=== PATIENT | male | born 1995 | race Caucasian/White ===

== ENCOUNTER 2023-04-26 11:59 | Inpatient (IN) ==
[2023-04-26 13:25] LABS: ABS Basophils 0.1 10^3/uL (0.0-0.1); ABS Eosinophils 0.2 10^3/uL (0.0-0.5); ABS Lymphocytes 2.1 10^3/uL (1.0-4.8); ABS Monocytes 0.9 10^3/uL (0.0-1.1); ABS Neutrophils 9.9 10^3/uL (1.5-7.6); Eosinophil % 1.7 %; Hematocrit 46.8 % (38-53); Hemoglobin 15.8 g/dL (13.2-16.3); Lymphocyte % 15.7 %; Mean Corpuscular Hemoglobin 28.7 pg (27-33); Mean Corpuscular Hgb Conc 33.6 g/dL (31-36); Mean Corpuscular Volume 85.4 fL (80-97); Mean Platelet Volume 7.1 fL (7.5-11.2); Platelet Count 329 10^3/uL (150-450); Red Blood Count 5.49 10^6/uL (4.06-5.63); Red Cell Distribution Width 13.5 % (12-17); White Blood Count 13.2 10^3/uL (3.6-10.2)
[2023-04-26 13:44] LABS: ALT 21 U/L (7-52); AST 15 U/L (13-39); Albumin 4.9 g/dL (3.2-5.2); Albumin/Globulin Ratio 1.4 (1-3); Alkaline Phosphatase 72 U/L (35-149); Anion Gap 7 mmol/L (2-16); Blood Urea Nitrogen 14 mg/dL (6-24); CO2 Carbon Dioxide 26 mmol/L (22-32); Calcium 9.9 mg/dL (8.6-10.3); Chloride 103 mmol/L (101-111); Creatinine, Serum 0.91 mg/dL (0.67-1.17); Globulin 3.4 g/dL (2-4); Glucose 94 mg/dL (70-100); Sodium 136 mmol/L (135-145); Total Protein 8.3 g/dL (6.4-8.9)
[2023-04-26 13:46] LABS: Urine Benzodiazepine Screen None Detected (None Detect); Urine Cannabinoids Screen None Detected (None Detect); Urine Opiates Screen None Detected (None Detect)
[2023-04-26 14:09] LABS: Alcohol, S < 13 mg/dL (<13); Salicylate < 2.50 mg/dL (<30)
[2023-04-26 14:24] LABS: TSH Ultra Thyroid Stim Horm 0.97 mcIU/mL (0.34-5.60)
[2023-04-26 14:25] LABS: Acetaminophen < 15 mcg/mL
[2023-04-26] MEDS: Nicotine GUM 4MG FRUIT FLAVOR PO PRN ×2 (14:59→18:25)
[2023-04-26] MEDS ORDERED: Al Hydrox/Mg Hydrox/Simet LIQ 30 ML UDC PO PRN (17:33)
[2023-04-26] MEDS ORDERED: Nicotine Lozenge mini 4 MG LOZNG.MINI MT PRN (18:00)
[2023-04-27 08:52] LABS: HDL Cholesterol 35.3 mg/dL
[2023-04-27] MEDS: Vitamin THERAPEUTIC TAB PO SCH (09:17)
[2023-04-27] MEDS: Nicotine PATCH 21 MG/24 HR PATCH TRANSDERM SCH (09:17)
[2023-04-27] MEDS: Nicotine GUM 4MG FRUIT FLAVOR PO PRN ×3 (09:18→15:12)
[2023-04-28] MEDS: Vitamin THERAPEUTIC TAB PO SCH (08:12)
[2023-04-28] MEDS: Nicotine GUM 4MG FRUIT FLAVOR PO PRN ×2 (08:13→11:05)
[2023-04-28] MEDS: Nicotine PATCH 21 MG/24 HR PATCH TRANSDERM SCH (09:32)
[2023-04-29] MEDS: Vitamin THERAPEUTIC TAB PO SCH (08:28)
[2023-04-29] MEDS: Nicotine PATCH 21 MG/24 HR PATCH TRANSDERM SCH (08:29)
[2023-04-29] MEDS: Nicotine GUM 4MG FRUIT FLAVOR PO PRN ×2 (08:30→14:25)
[2023-04-30] MEDS: Nicotine PATCH 21 MG/24 HR PATCH TRANSDERM SCH (07:55)
[2023-04-30] MEDS: Vitamin THERAPEUTIC TAB PO SCH (07:55)
[2023-04-30] MEDS: Nicotine GUM 4MG FRUIT FLAVOR PO PRN (09:12)
[2023-04-30 11:04] VITALS: BP 156/76
== END 2023-04-30 15:44 | disposition home or self-care (01) | DRG 750 ==
LOC: ED 11:59 → EDHOLD 16:06 → BSU 17:14
PROVIDERS: ADMIT Psychiatry & Neurology Psychiatry; ATTEND Psychiatry & Neurology Psychiatry